=== PATIENT | female | born 1985 | race American Indian/Alaskan Native ===

== ENCOUNTER 2017-01-14 14:57 | Emergency (ER) | payer SELFPAY ==
--- NOTE | 2017-01-14 15:36 | Emergency Department Report ---
Chief Complaint: Chest Pain Stated Complaint: CHEST PAIN/EDEMA Time Seen by Provider: 01/14/17 15:32 - HPI History of Present Illness: PT c/o chest pain, onset last night when watching a movie with her children. PT states that her whole body is swollen - ROS Review of Systems: + subjective fever - pt states she felt hot + chills - Exam Physical Exam: + trace swelling to BLE, R >L MSE screening note: Focused history and physical exam performed. Due to findings the following was ordered: xr, ekg, labs ED Disposition for MSE Condition: Stable
[2017-01-14 16:07] LABS: Urine Drugs of Abuse Note Disclamer
[2017-01-14 16:26] LABS: Bacteria,Urine 2+ /HPF (Negative); Bilirubin,Urine NEG (Negative); Blood,Urine NEG (Negative); Ketones,Urine NEG (Negative); Leukocyte Esterase,Urine NEG (Negative); Mucus,Urine FEW /HPF; Nitrite,Urine NEG (Negative); Protein,Urine <15 mg/dL mg/dL (Negative); Urobilinogen,Urine < 2.0 mg/dL (<2.0); WBC,Urine < 1.0 /HPF (0.0-6.0)
[2017-01-14 16:30] LABS: Alanine Aminotransferase 9 units/L (7-56); Albumin 3.9 g/dL (3.9-5); Albumin/Globulin Ratio 1.1 %; Alkaline Phosphatase 68 units/L (35-129); Anion Gap 14 mmol/L; BUN/Creatinine Ratio 18.33; Blood Urea Nitrogen 11 mg/dL (7-17); Carbon Dioxide 30 mmol/L (22-30); Chloride 96.4 mmol/L (98-107); Glucose 86 mg/dL (65-100); Potassium 3.4 mmol/L (3.6-5.0); Sodium 137 mmol/L (137-145); Total Protein 7.6 g/dL (6.3-8.2)
[2017-01-14 16:38] LABS: Basophils % (Auto) 0.4 % (0.0-1.8); Eosinophils % (Auto) 1.5 % (0.0-4.3); Hematocrit 33.9 % (30.3-42.9); Mean Corpuscular HGB Conc 32 % (30-34); Mean Corpuscular Hemoglobin 28 pg (28-32); Mean Corpuscular Volume 88 fl (79-97); Platelet Count 417 K/mm3 (140-440); Red Blood Count 3.87 M/mm3 (3.65-5.03); Red Cell Distribution Width 14.7 % (13.2-15.2)
--- NOTE | 2017-01-14 18:10 | Emergency Department Report ---
ED Chest Pain HPI - General Chief Complaint: Chest Pain Stated Complaint: CHEST PAIN/EDEMA Time Seen by Provider: 01/14/17 15:32 Source: patient Mode of arrival: Ambulatory Limitations: No Limitations - History of Present Illness MD Complaint: chest pain -: week(s) Onset: during rest Pain Location: epigastric Severity: moderate Severity scale (0 -10): 5 Quality: sharp Other Symptoms: leg swelling. denies: cough, fever, syncope - Related Data Previous Rx's Medication Instructions Recorded Last Taken Type Ibuprofen [Motrin 800 MG tab] 800 mg PO Q8HR PRN #10 tablet 12/27/14 Unknown Rx Vit-Fe Fumar-FA [ 1 each PO QDAY tablet 01/29/15 Unknown Rx Vitamin] Ketorolac [Toradol] 10 mg PO Q6H PRN #20 tablet 01/14/17 Unknown Rx Allergies Allergy/AdvReac Type Severity Reaction Status Date / Time cefaclor [From Ceclor] Allergy Anaphylaxis Verified 01/28/15 21:26 Penicillins Allergy Anaphylaxis Verified 01/28/15 21:26 Heart Score - HEART Score History: Slightly suspicious EKG: Non-specific Age: < 45 Risk factors: No known risk factors Troponin: < normal limit HEART Score: 1 - Critical Actions Critical Actions: 0-3 pts:0.9-1.7%risk of adverse cardiac event.Candidate for discharge ED Review of Systems ROS: Stated complaint: CHEST PAIN/EDEMA Other details as noted in HPI Comment: All other systems reviewed and negative Constitutional: denies: chills, fever Respiratory: denies: cough, shortness of breath, SOB with exertion Cardiovascular: denies: chest pain, palpitations Gastrointestinal: denies: abdominal pain, nausea, vomiting Skin: denies: rash Neurological: denies: headache ED Past Medical Hx - Past Medical History Previous Medical History?: No Additional medical history: SVT. anemia - Surgical History Additional Surgical History: T&A - Social History Smoking Status: Never Smoker Substance Use Type: None - Medications Home Medications: Home Medications Medication Instructions Recorded Confirmed Last Taken Type Ibuprofen [Motrin 800 MG tab] 800 mg PO Q8HR PRN #10 tablet 12/27/14 Unknown Rx Vit-Fe Fumar-FA [ 1 each PO QDAY tablet 01/29/15 Unknown Rx Vitamin] Ketorolac [Toradol] 10 mg PO Q6H PRN #20 tablet 01/14/17 Unknown Rx ED Physical Exam - General Limitations: No Limitations General appearance: alert - Head Head exam: Present: atraumatic - ENT ENT exam: Present: normal exam - Neck Neck exam: Present: normal inspection. Absent: tenderness - Respiratory Respiratory exam: Present: normal lung sounds bilaterally. Absent: respiratory distress, wheezes, chest wall tenderness - Cardiovascular Cardiovascular Exam: Present: regular rate, normal rhythm, normal heart sounds - GI/Abdominal GI/Abdominal exam: Present: soft. Absent: distended, tenderness, guarding, rebound, mass, pulsatile mass - Back Exam Back exam: Present: normal inspection - Neurological Exam Neurological exam: Present: alert, oriented X3, CN II-XII intact - Skin Skin exam: Present: warm, normal color ED Course Vital Signs 01/14/17 01/14/17 15:33 18:26 Temperature 98.3 F 98.4 F Pulse Rate 73 69 Respiratory 18 14 Rate Blood Pressure 123/56 Blood Pressure 104/93 [Right] O2 Sat by Pulse 100 100 Oximetry - Reevaluation(s) Reevaluation #1: 01/14/17 19:26 Patient stated that she is feeling better no abdominal pain or chest pain. ED Medical Decision Making - Lab Data Result diagrams: 01/14/17 15:45 01/14/17 15:45 Critical care attestation.: If time is entered above; I have spent that time in minutes in the direct care of this critically ill patient, excluding procedure time. ED Disposition Clinical Impression: Chest pain, atypical Disposition: DC-01 TO HOME OR SELFCARE Is pt being admited?: No Does the pt Need Aspirin: No Condition: Stable Instructions: Chest Pain (ED) Prescriptions: Ketorolac [Toradol] 10 mg PO Q6H PRN #20 tablet PRN Reason: Pain Referrals: PRIMARY CARE, [Primary Care Provider] - 3-5 Days
[2017-01-14] MEDS ORDERED: TORADOL ONE (18:37)
[2017-01-14] MEDS ORDERED: TORADOL IV ONE (18:43)
[2017-01-14 20:03] VITALS: BP 101/48
--- NOTE | 2017-01-15 07:34 | XRay Report ---
ROUTINE CHEST, TWO VIEWS: HISTORY: chest pain. The trachea, heart, mediastinal contour, and lung witt are unremarkable. Moderate to severe dextroscoliosis of the thoracic spine is noted and not significantly changed since 01/29/15. IMPRESSION: Scoliosis, otherwise, unremarkable chest films.
== END 2017-01-14 19:59 | disposition home or self-care (01) ==
LOC: ED 14:57
DX: R07.89 Other chest pain (principal); D64.9 Anemia, unspecified; Z88.0 Allergy status to penicillin; Z88.8 Allergy status to other drugs, medicaments and biological substances
CPT/HCPCS: 36415; 71020; 80053; 80307; 81001; 83880; 84484; 84703; 85025; 85379; 93005; 93010; 96374; 99284; J1885

== ENCOUNTER 2021-12-03 14:24 | Emergency (ER) | payer MEDICAID ==
[2021-12-03 14:55] VITALS: BP 123/79
== END 2021-12-04 02:50 | disposition left against medical advice (07) ==
LOC: ED 14:24
DX: U07.1 COVID-19 (principal); J11.1 Influenza due to unidentified influenza virus with other respiratory manifestations; Z53.21 Procedure and treatment not carried out due to patient leaving prior to being seen by health care provider